=== PATIENT | female | born 1975 | race African-American/Black ===

== ENCOUNTER 2020-10-24 12:05 | Inpatient (IN) | payer MEDICAID, SELFPAY ==
[~2020-10-24] VITALS: Ht 147.3 cm; Wt 147.0 kg
[2020-10-24] MEDS ORDERED: PROAAER10 INH (12:15)
[2020-10-24] MEDS ORDERED: LORazepam 2 MG/ML VIAL IV STA ×2 (12:56→14:12)
[2020-10-24] MEDS ORDERED: LORazepam 2 MG/ML VIAL As Ordered ONE (12:58)
[2020-10-24 13:01] LABS: VENOUS BASE EXCESS -3.9 (-2.0-2.0); VENOUS HCO3 22.3 MEQ/L (23.0-27.0); VENOUS O2 SATURATION 97.8 % (60.0-80.0); VENOUS PARTIAL PRESSURE CO2 44.6 mmHg (38.0-50.0); VENOUS PARTIAL PRESSURE O2 104.3 mmHg (30.0-50.0); VENOUS PH 7.316 UNITS (7.330-7.430); VENOUS STANDARD HCO3 21.3 MEQ/L; VENOUS TOTAL CO2 23.6 MEQ/L (24.0-28.0)
[2020-10-24 13:05] LABS: BASO % 0.2 % (0.0-1.0); EOS % 0.2 % (0.0-3.0); HEMATOCRIT 37.9 % (36.0-47.0); HEMOGLOBIN 11.8 g/dl (12.0-15.5); LYMPH # 1.4 10^3/uL (1.5-5.0); LYMPH % 11.4 % (24.0-44.0); MEAN CORPUSCULAR HEMOGLOBIN 27.5 pg (27.0-33.0); MEAN CORPUSCULAR HGB CONC 31.1 g/dl (32.0-36.5); MEAN CORPUSCULAR VOLUME 88.3 fl (80.0-96.0); MONO # 1.3 10^3/uL (0.0-0.8); MONO % 10.6 % (2.0-8.0); NEUTROPHILS # 9.5 10^3/uL (1.5-8.5); NEUTROPHILS % 77.2 % (36.0-66.0); PLATELET COUNT, AUTOMATED 303 10^3/uL (150-450); RED BLOOD COUNT 4.29 10^6/uL (4.00-5.40); WHITE BLOOD COUNT 12.3 10^3/uL (4.0-10.0)
--- NOTE | 2020-10-24 13:36 | REP ---
INDICATION: Drug Overdose. COMPARISON: None. TECHNIQUE: Portable FINDINGS: The technique utilized in obtaining the radiograph has magnified the cardiac silhouette and accentuated the interstitial markings. The superior mediastinal structures are midline. The cardiac silhouette is unremarkable in size, shape, and position. The diaphragmatic surfaces of the lungs are regular, and the costophrenic angles are clear. The pulmonary plasencia are clear. The imaged osseous structures are intact. IMPRESSION: There is no acute cardiopulmonary disease. <Electronically signed by Nathanael Tay > 10/24/20 [id number]
[2020-10-24 13:49] LABS: OSMOLALITY SERUM 292 MOSM/KG (275-295)
[2020-10-24 14:19] LABS: BLOOD UREA NITROGEN 12 MG/DL (7-18); CALCIUM LEVEL 9.8 MG/DL (8.5-10.1); CARBON DIOXIDE LEVEL 23 MEQ/L (21-32); CHLORIDE LEVEL 105 MEQ/L (98-107); CREATININE FOR GFR 1.03 MG/DL (0.55-1.30); GLOMERULAR FILTRATION RATE > 60.0 (>58); GLUCOSE, FASTING 105 MG/DL (70-100); POTASSIUM SERUM 3.8 MEQ/L (3.5-5.1); SODIUM LEVEL 140 MEQ/L (136-145)
[2020-10-24 14:20] LABS: ACETAMINOPHEN LEVEL < 2.0 UG/ML (10.0-30.0); ALT/SGPT 49 U/L (12-78); BILIRUBIN,DIRECT 0.4 MG/DL (0.0-0.2); BILIRUBIN,TOTAL 1.4 MG/DL (0.2-1.0); CPK CREATINE PHOSPHOKINASE 1612 U/L (26-192); ETHYL ALCOHOL (ETHANOL) < 0.003 % (0.000-0.010); SALICYLATE LEVEL < 1.7 MG/DL (5.0-30.0); THYROID STIMULATING HORMONE 0.958 uIU/ML (0.358-3.740); TOTAL PROTEIN 7.7 GM/DL (6.4-8.2)
[2020-10-24] MEDS ORDERED: NS 500 ML IV STA (15:45)
[2020-10-24 17:09] LABS: AMPHETAMINES LEVEL URINE NEGATIVE (NEGATIVE); BARBITURATES URINE NEGATIVE (NEGATIVE); BENZODIAZEPINES URINE NEGATIVE (NEGATIVE); CANNABINOIDS URINE NEGATIVE (NEGATIVE); COCAINE METABOLITE URINE POSITIVE (NEGATIVE); METHADONE URINE NEGATIVE (NEGATIVE); OPIATES URINE NEGATIVE (NEGATIVE); PHENCYCLIDINE URINE NEGATIVE (NEGATIVE)
[2020-10-24] MEDS ORDERED: MOM 30ML SUSPENSION UDC PO PRN (17:25)
[2020-10-24] MEDS ORDERED: MAALOX 30 ML SUSP *UDC PO PRN (17:25)
--- NOTE | 2020-10-24 17:25 | HPEPDOC ---
[facility] Medical History & Physical Date of Admission Oct 24, 2020 Date of Service: Oct 24, 2020 History and Physical CHIEF COMPLAINT: Altered mental status, shortness of breath HISTORY OF PRESENT ILLNESS: Patient is a 45-year-old female with reported history of untreated obstructive sleep apnea as well as cocaine abuse. Majority of history is obtained from collateral sources including ER and patient's son, as the patient only responds to sternal rub and is unable to answer many for questions. Patient was brought to ER by EMS after she had developed rising and twitching movements altered mental status and shortness of breath. She reported to be a provider that she had drunk approximately 1 L of alcohol yesterday and is smoking since her brown substance brought by her friends. On arrival to the ER patient was saturating 89% on room air, was tachycardic to 132, temperature 99.9 and blood pressure 191/99 which later improved to 139/71. VBG showing a true acidosis with a CO2 of 62.1 and a pH of 7.2-7. Patient needed to placed on BiPAP is saturating at 99%. Labs reviewed. WBC 12.3, hemoglobin 11.8, platelets 303. Sodium 140, K3.8. CR 1.03. Total bili 1.4. D bili 0.4. CK 1600. Urine toxicology screen is positive for cocaine. PAST MEDICAL HISTORY: Astma Active untreated AUDREY Cocaine abuse PAST SURGICAL HISTORY: Unable to obtain as patient is currently unable to answer questions. SOCIAL HISTORY: History is positive for cocaine abuse ALLERGIES: Please see below. REVIEW OF SYSTEMS: Patient is unable to participate in review of systems at this time. HOME MEDICATIONS: Please see below. PHYSICAL EXAMINATION: VITAL SIGNS: please see below General: NAD, comfortable HEENT: 3 mm pupils, symmetrical. Neck: supple, normal ROM, no JVD Respiratory: lungs CTAB, no wheeze, no rales, no crackles CVS: RRR, normal S1, S2, no murmurs Abdo: soft, no masses, no hepatosplenomegaly, BS+, no rebound tenderness Extremities: no edema, pulses 2+ MSK: no joint deformities, normal ROM Neuro: patient reponds only to painful stimuli, moves all 4 extremities. LABORATORY DATA: See below. IMAGING: CXR (10/24/20): There is no acute cardiopulmonary disease. MICROBIOLOGY: Please see below. ASSESSMENT: 45-year-old female with asthma, untreated obstructive sleep apnea and cocaine abuse admitted for altered mental status secondary to alcohol and unknown substance abuse presented with acute respiratory failure requiring BiPAP. Patient be admitted to ICU for BiPAP therapy with disintegrator operator on consult for BiPAP management. PLAN: Acute respiratory failure/respiratory acidosis - in setting of drug and alcohol use - patient responds only to painful stimuli, unable to answer questions - presently on bipap, tolerating well, saturating 98% - repeat ABG in 1 hour - powerhouse operator consult for assistance with bipap management - combivent prn - obtain CT head wo contrast Suspected obstructive sleep apnea - c/w bipap for now - outpatient sleep study Polysustance use/etoh use disorder - CIWA protocol - ativan prn GI ppx: IV PPI DVT ppx: heparin 5000 mg q8h SC Dispo: admission expect to last > 2 midnights Vital Signs Vital Signs Date Time Temp Pulse Resp B/P (MAP) Pulse Ox O2 Delivery O2 Flow Rate FiO2 10/24/20 16:45 105 143/67 (92) 98 NIPPV (BIPAP/CPAP) 10/24/20 15:48 30 10/24/20 14:38 4.0 10/24/20 12:07 99.9 24 Laboratory Data Labs 24H Laboratory Tests 2 10/24/20 12:24: Immature Granulocyte % (Auto) 0.4, Neutrophils (%) (Auto) 77.2H, Lymphocytes (%) (Auto) 11.4L, Monocytes (%) (Auto) 10.6H, Eosinophils (%) (Auto) 0.2, Basophils (%) (Auto) 0.2, Neutrophils # (Auto) 9.5H, Lymphocytes # (Auto) 1.4L, Monocytes # (Auto) 1.3H, Eosinophils # (Auto) 0.0, Basophils # (Auto) 0.0, Nucleated Red Blood Cells % (auto) 0.0, Anion Gap 12, Glomerular Filtration Rate > 60.0, Osmolality 292, Calcium Level 9.8, Total Bilirubin 1.4H, Direct Bilirubin 0.4H, Aspartate Amino Transf (AST/SGOT) 63H, Alanine Aminotransferase (ALT/SGPT) 49, Alkaline Phosphatase 81, Total Creatine Kinase 1612H, Total Protein 7.7, Albumin 4.0, Albumin/Globulin Ratio 1.1L, Thyroid Stimulating Hormone (TSH) 0.958, Salicylates Level < 1.7L, Acetaminophen Level < 2.0L, Ethyl Alcohol Level < 0.003 10/24/20 12:30: Blood Gas Bicarbonate Standard 21.3, Venous Blood pH 7.316L, Venous Blood Partial Pressure CO2 44.6, Venous Blood Partial Pressure O2 104.3H, Venous Blood Total Carbon Dioxide 23.6L, Venous Blood HCO3 22.3L, Venous Blood Oxygen Saturation 97.8H, Venous Blood Base Excess -3.9L, Urine Opiates Screen NEGATIVE, Urine Methadone Screen NEGATIVE, Urine Barbiturates Screen NEGATIVE, Urine Phencyclidine Screen NEGATIVE, Urine Amphetamines Screen NEGATIVE, Urine Benzodiazepines Screen NEGATIVE, Urine Cocaine Metabolite Screen POSITIVEH, Urine Cannabinoids Screen NEGATIVE 10/24/20 14:40: POC pH (Misc Panel) 7.227*L, POC Base Excess (Misc Panel) -2.0, POC Saturated Percent O2 (Misc) 94L, POC pO2 (Misc Panel) 87.0, POC pCO2 (Misc Panel) 62.1*H, POC HCO3 (Misc Panel) 25.8, POC Total CO2 (Misc Panel) 28.0H 10/24/20 15:35: POC pH (Misc Panel) 7.228*L, POC Base Excess (Misc Panel) 0.0, POC Saturated Percent O2 (Misc) 100H, POC pO2 (Misc Panel) 323.0H, POC pCO2 (Misc Panel) 66.0*H, POC HCO3 (Misc Panel) 27.5H, POC Total CO2 (Misc Panel) 29.0H CBC/BMP Laboratory Tests 10/24/20 12:24 Microbiology Microbiology 10/24/20 Respiratory Virus Panel (PCR) ([facility]) - Final, Complete Home Medications Scheduled PRN Albuterol Sulfate (Proair Hfa) 8.5 Gm Hfa.aer.ad, 2 PUFF INH Q4H PRN for SHORTNESS OF BREATH Allergies Coded Allergies: No Known Allergies (Unverified , 10/24/20) RACHAEL FOSTER MD Oct 24, 2020 17:25
[2020-10-24 18:26] LABS: ABG BASE EXCESS -3.1 (-2.0-2.0); ABG HCO3 24.6 MEQ/L (22.0-26.0); ABG O2 SATURATION 96.1 % (95.0-99.0); ABG PARTIAL PRESSURE CO2 56.7 mmHg (35.0-45.0); ABG PARTIAL PRESSURE O2 92.1 mmHg (75.0-100.0); ABG STANDARD HCO3 21.9 MEQ/L (22.0-26.0); ABG TOTAL CO2 26.4 MEQ/L (22.0-29.0); ABG pH (ARTERIAL) 7.256 UNITS (7.350-7.450)
[2020-10-24 19:05] VITALS: BP 136/65
--- NOTE | 2020-10-24 19:12 | REPVR ---
PROCEDURE INFORMATION: Exam: CT Head Without Contrast Exam date and time: 10/24/2020 6:52 PM Age: 45 years old Clinical indication: Altered mental status/memory loss; Additional info: AMS TECHNIQUE: Imaging protocol: Computed tomography of the head without contrast. Radiation optimization: All CT scans at this facility use at least one of these dose optimization techniques: automated exposure control; mA and/or kV adjustment per patient size (includes targeted exams where dose is matched to clinical indication); or iterative reconstruction. COMPARISON: No relevant prior studies available. FINDINGS: Brain: Normal. No hemorrhage. Unremarkable white matter. No mass effect. Cerebral ventricles: No ventriculomegaly. Bones/joints: Unremarkable. No acute fracture. Paranasal sinuses: Visualized sinuses are unremarkable. No fluid levels. Mastoid air cells: Visualized mastoid air cells are well aerated. Soft tissues: Unremarkable. IMPRESSION: No acute intracranial abnormality. Electronically signed by: Karri Rea On 10/24/2020 19:12:57 PM
--- NOTE | 2020-10-24 19:39 | CCN ---
CRITICAL CARE NOTE DATE: 10/24/2020 CRITICAL CARE TIME: 51 minutes. This excludes all procedures. SUBJECTIVE: I was consulted for BiPAP and hypercarbic respiratory failure. Priya is a 45-year-old female who presented to the Emergency Room intoxicated, positive tox screen for cocaine, possible synthetic drug use. Upon my arrival to the Emergency Room, the patient had already been on bilevel noninvasive therapy, pulling tidal volumes around 430. She aroused with stimulation to the point where she took her mask off. She was able to say where she was, what day it was, what month it was. She did have some significant agitation. However, was able to respond to commands and follow commands. At this point in time, she is unable to provide a significant amount of history. She does admit to illicit drug use with a friend and not only cocaine but then smoking a brown substance that she was unsure of the exact drug which she was doing. The patient has morbid obesity. Reported history of obstructive sleep apnea. Social history, review of systems, and medications are unobtainable from the patient currently. OBJECTIVE: Vital signs: Temperature is 99.9, heart rate 124 in sinus rhythm, respiratory rate 18 to 24, blood pressure is 154/67 with a MAP of 96, oxygen saturation 94% on 2 liters currently. She was taken off bilevel now that she is more awake. HEENT: Sclerae are clear, nonicteric. Pupils are equal and reactive to light. Mucous membranes are moist without lesions. Oropharynx without erythema or exudate. Mallampati IV airway. Tongue is large. Neck is large in circumference. Unable to assess jugular venous pressure, no thyromegaly. Lymph: No cervical, supraclavicular, or axillary adenopathy. Cardiac: Tachycardic S1, S2 without audible murmur, rub, or gallop. PMI is difficult to palpate due to body habitus. Pulmonary: Clear to auscultation without rales, rhonchi, or wheezes. No dullness to percussion. No accessory muscle use. Abdomen: Obese, soft, nontender, nondistended. No hepatosplenomegaly. No masses or hernia. Extremities: No cyanosis, clubbing, or edema. Skin: No rash, jaundice, or bruising. Musculoskeletal: Normal muscle tone. No evidence of trauma or fracture. Neurologic: No unilateral weakness. No myoclonus. With dorsiflexion of the foot there is no evidence of myoclonus. The patient is able to have 5/5 muscle strength bilaterally. She is able to cough, clear her own secretions. Pupils are equal and reactive to light. She does have some frequent limb movements that appear more out of agitation than true myoclonic jerking. Laboratory evaluation shows a white blood cell count of 12.3, hemoglobin 11.8, platelet count of 303 with neutrophilia of 77. Arterial blood gas shows now a pH of 7.26, pCO2 of 58, and a PaO2 of 92. This is improved from VBG of 7.23, pCO2 of 66, PaO2 of 323. Toxicology screen is positive for cocaine, negative for all other things including alcohol despite the patient reporting alcohol intoxication. Chest x-ray shows limited inspiratory effort likely from body habitus without evidence of infiltrate. However, it is a fairly poor quality film. There is some haziness in the right hilum but this is difficult to tell whether this is from decreased penetration or true abnormality. The official radiology report is that there is no acute pulmonary disease. ASSESSMENT AND PLAN: Hypercarbic respiratory failure from drug intoxication. The patient did receive some benzodiazepine therapy due to agitation in the Emergency Room. Initially had fairly decent ABG. However, to control her agitation was given Ativan. This likely caused some of her hypercarbic respiratory failure along with her obesity. Therefore for all forms of sleep and sedation she should be on bilevel noninvasive therapy. I have written for this. She should be monitored in the Intensive Care Unit at least in the first 24 hours to ensure that there is no need for intubation or invasive mechanical ventilation. Recommend monitoring for other signs of drug intoxication. Critical care required for management of noninvasive ventilation and respiratory failure. MTDD
[2020-10-24] MEDS: PANTOPRAZOLE 40MG VIAL (C9113 PER 1) IV SCH (19:41)
[2020-10-24 20:00] VITALS: BP 118/64
[2020-10-24 21:00] VITALS: BP 104/55
[2020-10-24] MEDS: DOCUSATE SODIUM 100MG CAPSULE PO SCH (21:30)
[2020-10-24] MEDS: HEPARIN SOD (PORCINE) 5000UNITS/ML 1ML VIAL/SYRINGE SC SCH (21:30)
[2020-10-24] MEDS: ACETAMINOPHEN TAB 650MG DOSE (2X325MG) PO PRN (21:31)
[2020-10-25] VITALS (8 sets, daily range): BP systolic 99–147; BP diastolic 64–85; O2SAT 98
[2020-10-25] MEDS: NS 0.45% 1,000 ML IV SCH ×3 (00:19→23:30)
[2020-10-25 05:11] LABS: BASO % 0.2 % (0.0-1.0); EOS # 0.1 10^3/uL (0.0-0.5); EOS % 1.3 % (0.0-3.0); HEMOGLOBIN 10.8 g/dl (12.0-15.5); LYMPH # 1.8 10^3/uL (1.5-5.0); MEAN CORPUSCULAR HEMOGLOBIN 27.3 pg (27.0-33.0); MEAN CORPUSCULAR VOLUME 91.1 fl (80.0-96.0); MONO % 11.4 % (2.0-8.0); NEUTROPHILS # 5.6 10^3/uL (1.5-8.5); PLATELET COUNT, AUTOMATED 261 10^3/uL (150-450); RED BLOOD COUNT 3.95 10^6/uL (4.00-5.40); WHITE BLOOD COUNT 8.6 10^3/uL (4.0-10.0)
[2020-10-25 05:46] LABS: ALBUMIN 3.5 GM/DL (3.2-5.2); ALT/SGPT 48 U/L (12-78); BILIRUBIN,TOTAL 1.2 MG/DL (0.2-1.0); BLOOD UREA NITROGEN 9 MG/DL (7-18); CALCIUM LEVEL 9.4 MG/DL (8.5-10.1); CARBON DIOXIDE LEVEL 31 MEQ/L (21-32); CHLORIDE LEVEL 106 MEQ/L (98-107); CREATININE FOR GFR 0.85 MG/DL (0.55-1.30); GLOMERULAR FILTRATION RATE > 60.0 (>58); GLUCOSE, FASTING 101 MG/DL (70-100); MAGNESIUM LEVEL 2.4 MG/DL (1.8-2.4); POTASSIUM SERUM 4.4 MEQ/L (3.5-5.1); SODIUM LEVEL 140 MEQ/L (136-145); TOTAL PROTEIN 6.7 GM/DL (6.4-8.2)
[2020-10-25 06:19] LABS: ABG HCO3 25.9 MEQ/L (22.0-26.0); ABG O2 SATURATION 98.7 % (95.0-99.0); ABG PARTIAL PRESSURE CO2 53.1 mmHg (35.0-45.0); ABG PARTIAL PRESSURE O2 129.5 mmHg (75.0-100.0); ABG STANDARD HCO3 23.7 MEQ/L (22.0-26.0); ABG TOTAL CO2 27.5 MEQ/L (22.0-29.0); ABG pH (ARTERIAL) 7.306 UNITS (7.350-7.450)
[2020-10-25] MEDS ORDERED: BENZOCAINE 20% HEMORRHOIDAL OINTMENT 28GM TUBE TOP PRN (06:30)
[2020-10-25] MEDS: BENZOCAINE 20% GEL 9GM TUBE (ANBESOL MAX STRENGTH) OR PRN (07:11)
[2020-10-25] MEDS: HEPARIN SOD (PORCINE) 5000UNITS/ML 1ML VIAL/SYRINGE SC SCH ×3 (07:11→21:00)
[2020-10-25] MEDS: DOCUSATE SODIUM 100MG CAPSULE PO SCH ×2 (08:43→20:59)
--- NOTE | 2020-10-25 10:10 | ECGEPIP ---
[facility] - ED Test Date: 2020-10-24 Pat Name: JOAN NERI Department: Room: - Gender: Female Technology Services Manager: PAT : 1975 Requested By: iMmi De Jesus Order Number: [id number] Reading MD: Mimi De Jesus Measurements Intervals [place] Rate: 121 P: 55 ME: 154 QRS: 75 QRSD: 72 T: 40 QT: 312 QTc: 443 Interpretive Statements Sinus tachycardia no prior Electronically Signed on 10-25-2020 10:09:36 EDT by Mimi De Jesus
[2020-10-25 13:51] LABS: HEPATITIS B SURFACE ANTIGEN NEGATIVE (NEGATIVE)
[2020-10-25 14:18] LABS: HEPATITIS B CORE ANTIBODY IGM NEGATIVE (NEGATIVE); HEPATITIS C VIRUS ABY INDEX < 0.0 INDEX (<0.8)
[2020-10-25 14:21] LABS: HEPATITIS A ANTIBODY IGM NEGATIVE (NEGATIVE)
[2020-10-25] MEDS: ACETAMINOPHEN TAB 650MG DOSE (2X325MG) PO PRN ×2 (14:42→20:59)
--- NOTE | 2020-10-25 14:42 | REP ---
INDICATION: elevated bilirubin. COMPARISON: None. TECHNIQUE: Right upper quadrant sonography is performed. Exam quality was inhibited due to patient body habitus and limited ability to breath hold and position. FINDINGS: Scanning through the right upper quadrant of the abdomen demonstrates a normal sized, thin-walled gallbladder without evidence of stone or polyp. Common bile duct is normal measuring 0.4 cm in greatest diameter. No focal liver lesion is seen. Liver size is near the upper range of normal.. Pancreas is partially obscured by gas. No pancreatic abnormality is observed. No right renal abnormality is seen. There is no evidence of ascites. The right kidney measures 11.5 x 5.9 x 4.6 cm. IMPRESSION: Borderline liver size. Somewhat limited visualization of the pancreas. Otherwise negative right upper quadrant sonography. <Electronically signed by Jatinder Santana > 10/25/20 [id number]
--- NOTE | 2020-10-25 15:12 | IPNPDOC ---
Date Seen The patient was seen on 10/25/20. Progress Note SUBJECTIVE: Patient was seen and examined at bedside. Doing well. BiPAP has been off for about 4 hours. Presently on 2 L nasal cannula. States that shortness of breath has improved. Denies any chest pain, palpitations, nausea, vomiting, diarrhea. She is alert and oriented 3. States that she into the hospital after smoking a brown substance of unknown origin that was given to her by a friend. OBJECTIVE PHYSICAL EXAMINATION: VITAL SIGNS: please see below General: Obese female HEENT: PERRLA, EOMI, sclerae clear Neck: supple, normal ROM, no JVD Respiratory: lungs CTAB, no wheeze, no rales, no crackles CVS: RRR, normal S1, S2, no murmurs Abdo: soft, no masses, no hepatosplenomegaly, BS+, no rebound tenderness Extremities: no edema, pulses 2+ MSK: no joint deformities, normal ROM Neuro: no focal neuro deficits, moving all 4 extremities, CN2-12 intact. Strength 5/5 in all 4 extremities. No nystagmus. Psych: calm, cooperative, AAO x 3 LABORATORY DATA, IMAGING STUDIES, MICROBIOLOGY: Please see below. DVT prophylaxis ordered?: Heparin 5000 units every 8 hours subcutaneous ASSESSMENT AND PLAN: 45-year-old female with asthma, untreated obstructive sleep apnea and cocaine abuse admitted for altered mental status secondary to alcohol and unknown substance abuse presented with acute respiratory failure requiring BiPAP. Patient be admitted to ICU for BiPAP therapy with fence gate assembler on consult for BiPAP management. PROBLEMS: Acute respiratory failure/respiratory acidosis - ABG improved after bipap, now AAO x 3 - downgrade to med surg - combivent prn - CT head wo acute changes Suspected obstructive sleep apnea - 2L O2. check nocturnal O2 - outpatient sleep study Polysubstance use/etoh use disorder - CIWA protocol - ativan prn GI ppx: IV PPI DVT ppx: heparin 5000 mg q8h SC Dispo: admission expect to last > 2 midnights VS, I&O, 24H, Fishbone Vital Signs/I&O Vital Signs Date Time Temp Pulse Resp B/P (MAP) Pulse Ox O2 Delivery O2 Flow Rate FiO2 10/25/20 12:00 98.9 113 22 135/70 (91) 95 NIPPV (BIPAP/CPAP) 30 10/25/20 12:00 2.0 I&O- Last 24 Hours up to 6 AM 10/25/20 06:00 Intake Total 860 ml Output Total 600 ml Balance 260 ml Laboratory Data 24H LABS Laboratory Tests 2 10/24/20 15:35: POC pH (Misc Panel) 7.228*L, POC Base Excess (Misc Panel) 0.0, POC Saturated Percent O2 (Misc) 100H, POC pO2 (Misc Panel) 323.0H, POC pCO2 (Misc Panel) 66.0*H, POC HCO3 (Misc Panel) 27.5H, POC Total CO2 (Misc Panel) 29.0H 10/24/20 18:19: Blood Gas Bicarbonate Standard 21.9L, Arterial Blood pH 7.256L, Arterial Blood Partial Pressure CO2 56.7H, Arterial Blood Partial Pressure O2 92.1, Arterial Blood Total CO2 26.4, Arterial Blood HCO3 24.6, Arterial Blood Base Excess - 3.1L, Arterial Blood Oxygen Saturation 96.1 10/25/20 05:02: Immature Granulocyte % (Auto) 0.1, Neutrophils (%) (Auto) 66.0, Lymphocytes (%) (Auto) 21.0L, Monocytes (%) (Auto) 11.4H, Eosinophils (%) (Auto) 1.3, Basophils (%) (Auto) 0.2, Neutrophils # (Auto) 5.6, Lymphocytes # (Auto) 1.8, Monocytes # (Auto) 1.0H, Eosinophils # (Auto) 0.1, Basophils # (Auto) 0.0, Nucleated Red Blood Cells % (auto) 0.0, Anion Gap 3L, Glomerular Filtration Rate > 60.0, Calcium Level 9.4, Magnesium Level 2.4, Total Bilirubin 1.2H, Aspartate Amino Transf (AST/SGOT) 53H, Alanine Aminotransferase (ALT/SGPT) 48, Alkaline P hosphatase 72, Total Protein 6.7, Albumin 3.5, Albumin/Globulin Ratio 1.1L, Hepatitis A IgM Antibody NEGATIVE, Hepatitis B Surface Antigen NEGATIVE, Hepatitis B Core IgM Antibody NEGATIVE, Hepatitis C Antibody Index < 0.0 10/25/20 05:52: Blood Gas Bicarbonate Standard 23.7, Arterial Blood pH 7.306L, Arterial Blood Partial Pressure CO2 53.1H, Arterial Blood Partial Pressure O2 129.5H, Arterial Blood Total CO2 27.5, Arterial Blood HCO3 25.9, Arterial Blood Base Excess -1.0, Arterial Blood Oxygen Saturation 98.7 CBC/BMP Laboratory Tests 10/25/20 05:02 Microbiology Microbiology 10/24/20 Respiratory Virus Panel (PCR) ([facility]) - Final, Complete RACHAEL FOSTER MD Oct 25, 2020 15:12
[2020-10-25] MEDS: PANTOPRAZOLE 40MG VIAL (C9113 PER 1) IV SCH (17:18)
[2020-10-25] MEDS: COMBIVENT RESPIMAT 100-20MCG INHALER 4GM INH SCH ×3 (19:21→23:26)
--- NOTE | 2020-10-25 19:35 | REP ---
INDICATION: r/o DVT, has pain. COMPARISON: None. TECHNIQUE: Multiple ultrasonographic images of the deep venous structures of the bilateral thigh were obtained from the common femoral vein to the popliteal vein along with Doppler interrogation and color flow Doppler images. FINDINGS: There is no abnormal echogenic material seen within any of the visualized deep venous structures that would suggest acute thrombosis. Coaptation is unremarkable throughout. Doppler interrogation shows an expected response to respiratory variability and augmentation. The color flow images show what appears to be a normal vascular pattern throughout. IMPRESSION: There is no ultrasonographic evidence of deep venous thrombosis involving any of the visualized deep venous structures of the bilateral thigh, as described above. <Electronically signed by Nathanael Tay > 10/25/201930
[2020-10-25] MEDS ORDERED: LORazepam 2 MG TAB PO PRN (23:00)
[2020-10-26 05:15] VITALS: BP 136/68
[2020-10-26] MEDS: ACETAMINOPHEN TAB 650MG DOSE (2X325MG) PO PRN ×3 (05:25→21:20)
[2020-10-26] MEDS: HEPARIN SOD (PORCINE) 5000UNITS/ML 1ML VIAL/SYRINGE SC SCH ×3 (05:26→21:20)
[2020-10-26] MEDS: BENZOCAINE 20% GEL 9GM TUBE (ANBESOL MAX STRENGTH) OR PRN (05:27)
[2020-10-26] MEDS: COMBIVENT RESPIMAT 100-20MCG INHALER 4GM INH SCH ×6 (05:31→23:15)
[2020-10-26 05:32] VITALS: O2SAT 97
[2020-10-26 07:22] LABS: BASO % 0.3 % (0.0-1.0); EOS # 0.1 10^3/uL (0.0-0.5); EOS % 0.9 % (0.0-3.0); HEMATOCRIT 36.5 % (36.0-47.0); HEMOGLOBIN 10.6 g/dl (12.0-15.5); LYMPH # 1.1 10^3/uL (1.5-5.0); MEAN CORPUSCULAR HEMOGLOBIN 27.2 pg (27.0-33.0); MEAN CORPUSCULAR VOLUME 93.8 fl (80.0-96.0); MONO # 0.5 10^3/uL (0.0-0.8); MONO % 8.2 % (2.0-8.0); NEUTROPHILS # 4.7 10^3/uL (1.5-8.5); NEUTROPHILS % 73.4 % (36.0-66.0); PLATELET COUNT, AUTOMATED 280 10^3/uL (150-450); RED BLOOD COUNT 3.89 10^6/uL (4.00-5.40); WHITE BLOOD COUNT 6.4 10^3/uL (4.0-10.0)
[2020-10-26 07:29] LABS: HEMOGLOBIN A1c 6.5 %
[2020-10-26 07:30] VITALS: BP 135/78
[2020-10-26 07:33] LABS: ALBUMIN 3.3 GM/DL (3.2-5.2); ALT/SGPT 59 U/L (12-78); BILIRUBIN,TOTAL 0.7 MG/DL (0.2-1.0); BLOOD UREA NITROGEN 6 MG/DL (7-18); CALCIUM LEVEL 8.8 MG/DL (8.5-10.1); CARBON DIOXIDE LEVEL 32 MEQ/L (21-32); CHLORIDE LEVEL 103 MEQ/L (98-107); CREATININE FOR GFR 0.88 MG/DL (0.55-1.30); GLOMERULAR FILTRATION RATE > 60.0 (>58); GLUCOSE, FASTING 147 MG/DL (70-100); MAGNESIUM LEVEL 2.1 MG/DL (1.8-2.4); POTASSIUM SERUM 4.4 MEQ/L (3.5-5.1); SODIUM LEVEL 138 MEQ/L (136-145); TOTAL PROTEIN 6.7 GM/DL (6.4-8.2)
[2020-10-26] MEDS: DOCUSATE SODIUM 100MG CAPSULE PO SCH ×2 (09:00→21:00)
[2020-10-26] MEDS: NS 0.45% 1,000 ML IV SCH (09:47)
--- NOTE | 2020-10-26 12:29 | IPNPDOC ---
Date Seen The patient was seen on 10/26/20. Progress Note SUBJECTIVE: Patient was seen and examined at bedside. . She tolerated CPAP well overnight stated that her shortness of breath, much improved. Despite this she continues to require 3 L of oxygen via nasal cannula to maintain saturation above 92%. At this time, she does deny chest pain, seizures of breath, palpitations. No cough, no hemoptysis. OBJECTIVE PHYSICAL EXAMINATION: VITAL SIGNS: please see below General: Obese female HEENT: PERRLA, EOMI, sclerae clear Neck: supple, normal ROM, no JVD Respiratory: lungs CTAB, no wheeze, no rales, no crackles CVS: RRR, normal S1, S2, no murmurs Abdo: soft, no masses, no hepatosplenomegaly, BS+, no rebound tenderness Extremities: no edema, pulses 2+ MSK: no joint deformities, normal ROM Neuro: no focal neuro deficits, moving all 4 extremities, CN2-12 intact. Strength 5/5 in all 4 extremities. No nystagmus. Psych: calm, cooperative, AAO x 3 LABORATORY DATA, IMAGING STUDIES, MICROBIOLOGY: Please see below. DVT prophylaxis ordered?: Heparin 5000 units every 8 hours subcutaneous ASSESSMENT AND PLAN: 45-year-old female with asthma, untreated obstructive sleep apnea and cocaine abuse admitted for altered mental status secondary to alcohol and unknown substance abuse presented with acute respiratory failure requiring BiPAP. Patient be admitted to ICU for BiPAP therapy with crm dynamics developer on consult for BiPAP management. PROBLEMS: Acute respiratory failure/respiratory acidosis - ABG improved after bipap, now AAO x 3 - hypoxia persists, requires 3L O2 - combivent prn - tolerated CPAP overnight - CT head wo acute changes - I discussed with Dr. Ward. She is recommended to proceed with CT angiogram of the chest. - Will order a home safety eval from physical therapy. Encourage patient to ambulate and to use incentive spirometer. - will order CT angio chest. - incentive spirometry Suspected obstructive sleep apnea -now on 3L O2. check nocturnal O2 - outpatient sleep study Polysubstance use/etoh use disorder - [facility] protocol - ativan prn GI ppx: IV PPI DVT ppx: heparin 5000 mg q8h SC Dispo: admission expect to last > 2 midnights VS, I&O, 24H, Fishbone Vital Signs/I&O Vital Signs Date Time Temp Pulse Resp B/P (MAP) Pulse Ox O2 Delivery O2 Flow Rate FiO2 10/26/20 11:15 106 10/26/20 06:40 99.7 10/26/20 05:32 18 10/26/20 05:32 3 10/26/20 05:32 97 Nasal Cannula 32 10/26/20 05:15 136/68 (90) I&O- Last 24 Hours up to 6 AM 10/26/20 06:00 Intake Total 2900 ml Output Total 175 ml Balance 2725 ml Laboratory Data 24H LABS Laboratory Tests 2 10/25/20 17:01: Bedside Glucose (Misc Panel) 114H 10/26/20 06:43: Immature Granulocyte % (Auto) 0.2, Neutrophils (%) (Auto) 73.4H, Lymphocytes (%) (Auto) 17.0L, Monocytes (%) (Auto) 8.2H, Eosinophils (%) (Auto) 0.9, Basophils (%) (Auto) 0.3, Neutrophils # (Auto) 4.7, Lymphocytes # (Auto) 1.1L, Monocytes # (Auto) 0.5, Eosinophils # (Auto) 0.1, Basophils # (Auto) 0.0, Nucleated Red Blood Cells % (auto) 0.0, Anion Gap 3L, Glomerular Filtration Rate > 60.0, Estimated Mean Plasma Glucose 140H, Hemoglobin A1c 6.5, Calcium Level 8.8, Magnesium Level 2.1, Total Bilirubin 0.7, Aspartate Amino Transf (AST/SGOT) 60H, Alanine Aminotransferase (ALT/SGPT) 59, Alkaline Phosphatase 71, Total Protein 6.7, Albumin 3.3, Albumin/Globulin Ratio 1.0L CBC/BMP Laboratory Tests 10/26/20 06:43 Microbiology Microbiology 10/24/20 Respiratory Virus Panel (PCR) ([facility]) - Final, Complete RACHAEL FOSTER MD Oct 26, 2020 12:29
[2020-10-26] MEDS ORDERED: ISOVUE-370 76% 100ML VIAL As Ordered ONE (13:01)
--- NOTE | 2020-10-26 13:32 | REP ---
INDICATION: r/o PE. COMPARISON: None. TECHNIQUE: CT angiogram chest performed following the intravenous administration of 100 cc of Isovue 370. Sagittal and coronal reconstruction images are performed. Study is limited due to patient motion. FINDINGS: Lungs: There is mild fibro atelectatic change in the left lower lobe. There is mild patchy atelectasis or infiltrate in the right lower lobe. Mediastinum: No adenopathy. Pulmonary arteries: No evidence of central pulmonary embolism. Belkis: No adenopathy. Axilla: No adenopathy. Pleura: No effusion. Heart: Mildly enlarged. Thoracic aorta: No aneurysm or dissection. Upper abdominal structures: Unremarkable. Visualized osseous structures: Unremarkable. IMPRESSION: Limited exam due to patient motion. No CT evidence of central pulmonary embolism. Mild patchy atelectasis or infiltrate right lower lobe.. Mild cardiomegaly. <Electronically signed by Jonathan Talavera > 10/26/20 [id number]
[2020-10-26 14:00] VITALS: BP 140/83
[2020-10-26] MEDS ORDERED: FIORICET TAB PO ONE (16:15)
[2020-10-26] MEDS: PANTOPRAZOLE 40MG VIAL (C9113 PER 1) IV SCH (17:45)
[2020-10-26 22:00] VITALS: BP 99/67
[2020-10-26 22:30] VITALS: BP 136/80
[2020-10-27] MEDS: COMBIVENT RESPIMAT 100-20MCG INHALER 4GM INH SCH ×4 (04:00→14:58)
[2020-10-27] MEDS: ACETAMINOPHEN TAB 650MG DOSE (2X325MG) PO PRN ×2 (04:41→11:02)
[2020-10-27] MEDS: HEPARIN SOD (PORCINE) 5000UNITS/ML 1ML VIAL/SYRINGE SC SCH ×2 (05:28→14:23)
[2020-10-27 06:00] VITALS: BP 125/80
[2020-10-27 06:39] LABS: BASO % 0.2 % (0.0-1.0); EOS # 0.1 10^3/uL (0.0-0.5); EOS % 1.7 % (0.0-3.0); HEMATOCRIT 37.7 % (36.0-47.0); LYMPH # 1.1 10^3/uL (1.5-5.0); LYMPH % 20.7 % (24.0-44.0); MEAN CORPUSCULAR HEMOGLOBIN 27.6 pg (27.0-33.0); MEAN CORPUSCULAR HGB CONC 29.2 g/dl (32.0-36.5); MEAN CORPUSCULAR VOLUME 94.7 fl (80.0-96.0); MONO # 0.5 10^3/uL (0.0-0.8); NEUTROPHILS # 3.7 10^3/uL (1.5-8.5); NEUTROPHILS % 67.2 % (36.0-66.0); PLATELET COUNT, AUTOMATED 277 10^3/uL (150-450); RED BLOOD COUNT 3.98 10^6/uL (4.00-5.40); WHITE BLOOD COUNT 5.4 10^3/uL (4.0-10.0)
[2020-10-27 07:00] LABS: ALBUMIN 3.3 GM/DL (3.2-5.2); ALT/SGPT 60 U/L (12-78); BILIRUBIN,TOTAL 0.4 MG/DL (0.2-1.0); BLOOD UREA NITROGEN 3 MG/DL (7-18); CALCIUM LEVEL 8.9 MG/DL (8.5-10.1); CARBON DIOXIDE LEVEL 35 MEQ/L (21-32); CHLORIDE LEVEL 101 MEQ/L (98-107); CREATININE FOR GFR 0.72 MG/DL (0.55-1.30); GLOMERULAR FILTRATION RATE > 60.0 (>58); GLUCOSE, FASTING 123 MG/DL (70-100); MAGNESIUM LEVEL 2.2 MG/DL (1.8-2.4); POTASSIUM SERUM 4.4 MEQ/L (3.5-5.1); SODIUM LEVEL 140 MEQ/L (136-145); TOTAL PROTEIN 6.7 GM/DL (6.4-8.2)
[2020-10-27] MEDS: DOCUSATE SODIUM 100MG CAPSULE PO SCH (08:36)
[2020-10-27] MEDS ORDERED: PROAAER10 INH (12:32)
[2020-10-27] MEDS ORDERED: ACET-897 PO (12:32)
--- NOTE | 2020-10-27 12:37 | DS.PDOC ---
Discharge Summary General Date of Admission Oct 24, 2020 at 17:21 Date of Discharge 10/27/20 Discharge Summary PROCEDURES PERFORMED DURING STAY: [None]. ADMITTING DIAGNOSES: 1. . DISCHARGE DIAGNOSES: 1. . COMPLICATIONS/CHIEF COMPLAINT: Acute Respiratory Failure. HISTORY OF PRESENT ILLNESS: . HOSPITAL COURSE: . DISCHARGE MEDICATIONS: Please see below. ALLERGIES: Please see below. PHYSICAL EXAMINATION ON DISCHARGE: VITAL SIGNS: Please see below. GENERAL: HEENT: NECK: CARDIOVASCULAR EXAMINATION: RESPIRATORY EXAMINATION: ABDOMINAL EXAMINATION: EXTREMITIES: SKIN: NEUROLOGICAL EXAMINATION: PSYCHIATRIC EXAMINATION: LABORATORY DATA: Please see below. IMAGING: PROGNOSIS: ACTIVITY: [As tolerated]. DIET: DISCHARGE PLAN: DISPOSITION: . DISCHARGE INSTRUCTIONS: 1. . ITEMS TO FOLLOWUP ON ON OUTPATIENT: 1. . DISCHARGE CONDITION: [Stable]. TIME SPENT ON DISCHARGE: Greater than minutes. Vital Signs/I&Os Vital Signs Date Time Temp Pulse Resp B/P (MAP) Pulse Ox O2 Delivery O2 Flow Rate FiO2 10/27/20 12:17 98 22 82 Nasal Cannula 3.0 10/27/20 06:00 98.8 125/80 (95) 10/26/20 05:32 32 I&O- Last 24 Hours up to 6 AM 10/27/20 06:00 Intake Total 2520 ml Output Total 0 ml Balance 2520 ml Laboratory Data Labs 24H Laboratory Tests 2 10/27/20 06:09: Anion Gap 4L, Glomerular Filtration Rate > 60.0, Calcium Level 8.9, Magnesium Level 2.2, Total Bilirubin 0.4, Aspartate Amino Transf (AST/SGOT) 38H, Alanine Aminotransferase (ALT/SGPT) 60, Alkaline Phosphatase 64, Total Protein 6.7, Albumin 3.3, Albumin/Globulin Ratio 1.0L 10/27/20 06:10: Immature Granulocyte % (Auto) 0.2, Neutrophils (%) (Auto) 67.2H, Lymphocytes (%) (Auto) 20.7L, Monocytes (%) (Auto) 10.0H, Eosinophils (%) (Auto) 1.7, Basophils (%) (Auto) 0.2, Neutrophils # (Auto) 3.7, Lymphocytes # (Auto) 1.1L, Monocytes # (Auto) 0.5, Eosinophils # (Auto) 0.1, Basophils # (Auto) 0.0, Nucleated Red Blood Cells % (auto) 0.0 10/27/20 07:00: CBC/BMP Laboratory Tests 10/27/20 06:09 10/27/20 06:10 Microbiology Microbiology 10/24/20 Respiratory Virus Panel (PCR) ([facility], [place]) - Final, Complete Discharge Medications Scheduled PRN Acetaminophen (Tylenol Extra Strength) 500 Mg Tablet, 1,000 MG PO Q8HP PRN for PAIN OR TEMP > 101 Albuterol Sulfate (Proair Hfa) 8.5 Gm Hfa.aer.ad, 2 PUFF INH Q4H PRN for SHORTNESS OF BREATH Allergies Coded Allergies: No Known Allergies (Unverified , 10/24/20) RACHAEL FOSTER MD Oct 27, 2020 12:37
[2020-10-27 14:00] VITALS: BP 134/94
== END 2020-10-27 17:11 | disposition home or self-care (01) | DRG 133 ==
LOC: M ED 12:05 → M ED INP 17:21 → ENRESERV 17:56 → M ICU 18:59 → M MSPAV 10-25 13:50
PROVIDERS: ADMIT Family Medicine; ATTEND Family Medicine
DX: J96.02 Acute respiratory failure with hypercapnia (principal); E87.2 Acidosis; E66.01 Morbid (severe) obesity due to excess calories; Z68.44 Body mass index [BMI] 60.0-69.9, adult; G47.33 Obstructive sleep apnea (adult) (pediatric); F10.10 Alcohol abuse, uncomplicated; F14.10 Cocaine abuse, uncomplicated; Z79.899 Other long term (current) drug therapy

== ENCOUNTER 2021-08-13 12:54 | Observation (INO) | payer MEDICAID, OTHER ==
[~2021-08-13] VITALS: Ht 149.9 cm; Wt 156.0 kg
[~2021-08-13 12:54] MED LIST: ACET-897 PO; PROAAER10 INH
[2021-08-13] MEDS ORDERED: ACET325T43 PO (13:00)
[2021-08-13] MEDS ORDERED: ALBU8.5H (13:01)
[2021-08-13 16:26] LABS: BASO % 0.3 % (0.0-1.0); EOS # 0.1 10^3/uL (0.0-0.5); EOS % 0.6 % (0.0-3.0); HEMATOCRIT 42.9 % (36.0-47.0); HEMOGLOBIN 13.2 g/dl (12.0-15.5); MEAN CORPUSCULAR HEMOGLOBIN 27.4 pg (27.0-33.0); MEAN CORPUSCULAR HGB CONC 30.8 g/dl (32.0-36.5); MONO # 0.6 10^3/uL (0.0-0.8); MONO % 7.2 % (2.0-8.0); NEUTROPHILS # 5.1 10^3/uL (1.5-8.5); NEUTROPHILS % 65.8 % (36.0-66.0); PLATELET COUNT, AUTOMATED 328 10^3/uL (150-450); RED BLOOD COUNT 4.82 10^6/uL (4.00-5.40); WHITE BLOOD COUNT 7.8 10^3/uL (4.0-10.0)
[2021-08-13 16:32] LABS: ALBUMIN 3.8 GM/DL (3.2-5.2); ALT/SGPT 35 U/L (12-78); BILIRUBIN,TOTAL 0.6 MG/DL (0.2-1.0); BLOOD UREA NITROGEN 15 MG/DL (7-18); CALCIUM LEVEL 9.3 MG/DL (8.5-10.1); CARBON DIOXIDE LEVEL 31 MEQ/L (21-32); CHLORIDE LEVEL 107 MEQ/L (98-107); GLOMERULAR FILTRATION RATE > 60.0 (>58); GLUCOSE, FASTING 125 MG/DL (70-100); POTASSIUM SERUM 4.2 MEQ/L (3.5-5.1); SODIUM LEVEL 142 MEQ/L (136-145); TOTAL PROTEIN 7.7 GM/DL (6.4-8.2)
[2021-08-13 16:36] LABS: FREE T4 1.06 NG/DL (0.76-1.46); INR 0.87; PROTHROMBIN TIME 12.2 SECONDS (12.7-14.5); THYROID STIMULATING HORMONE 0.958 uIU/ML (0.358-3.740)
[2021-08-13 16:37] LABS: PARTIAL THROMBOPLASTIN TIME 26.3 SECONDS (25.9-37.0)
[2021-08-13] MEDS ORDERED: PROAAER10 INH (17:59)
[2021-08-13] MEDS ORDERED: ACET1TAB55 PO (17:59)
[2021-08-13] MEDS ORDERED: HOME MED LIST COMPLETE! XX SCH (18:00)
[2021-08-13] MEDS: ACETAMINOPHEN 500 MG TAB PO PRN (21:31)
[2021-08-13 22:00] VITALS: BP 142/86
[2021-08-14] VITALS (11 sets, daily range): BP systolic 95–164; BP diastolic 61–91; O2SAT 69–100
[2021-08-14] MEDS: ACETAMINOPHEN 500 MG TAB PO PRN ×2 (03:49→12:28)
[2021-08-14] MEDS ORDERED: KETOROLAC 30 MG/ML 1ML VIAL IV ONE (04:45)
[2021-08-14] MEDS ORDERED: amLODIPine 5 MG TAB PO SCH (09:00)
[2021-08-14 10:06] LABS: APPEARANCE, CSF CLEAR (CLEAR); COLOR, CSF COLORLESS (COLORLESS); CSF TUBE# CELL CNT TUBE 1
[2021-08-14 10:07] LABS: APPEARANCE, CSF CLEAR (CLEAR); COLOR, CSF COLORLESS (COLORLESS); CSF TUBE# CELL CNT TUBE 4
[2021-08-14 10:09] LABS: CSF TUBE# GLU TUBE 2; CSF TUBE# TP TUBE 2; GLUCOSE CSF 84 MG/DL (40-75); TOTAL PROTEIN,CSF 26 MG/DL (15-45)
[2021-08-14] MEDS ORDERED: acetaZOLAMIDE 250 MG TAB PO SCH (12:00)
[2021-08-14] MEDS ORDERED: INFLUENZA QUADRIVALENT PF VACCINE 0.5ML SYRINGE IM ONE (12:00)
[2021-08-14] MEDS ORDERED: ACET50CA PO (17:28)
== END 2021-08-14 18:46 | disposition home or self-care (01) ==
LOC: M ED 12:54 → M ED INP 12:55 → M MSPAV 20:50
PROVIDERS: ADMIT Family Medicine; ATTEND Family Medicine
DX: G93.2 Benign intracranial hypertension (principal); H47.11 Papilledema associated with increased intracranial pressure; G44.229 Chronic tension-type headache, not intractable; I10 Essential (primary) hypertension; E66.01 Morbid (severe) obesity due to excess calories; Z68.44 Body mass index [BMI] 60.0-69.9, adult; J45.909 Unspecified asthma, uncomplicated; R06.83 Snoring; R06.81 Apnea, not elsewhere classified; G43.909 Migraine, unspecified, not intractable, without status migrainosus
CPT/HCPCS: 62328; 70450; 77002; 80053; 82945; 84157; 84439; 84443; 84702; 85025; 85610; 85730; 87070; 87102; 87205; 87252; 87483; 87798; 88108; 88313; 89050; 96374; 99284; J1885

== ENCOUNTER → 2022-02-20 | Outpatient (CLI) | payer OTHER ==
[~2022-02-20] MED LIST changes: +ACET1TAB55 PO; +ACET325T43 PO; +ACET50CA PO; +ALBU8.5H
[2022-02-20 16:22] LABS: BASO % 0.3 % (0.0-1.0); EOS # 0.1 10^3/uL (0.0-0.5); EOS % 1.3 % (0.0-3.0); HEMATOCRIT 42.2 % (36.0-47.0); HEMOGLOBIN 13.2 g/dl (12.0-15.5); LYMPH # 2.7 10^3/uL (1.5-5.0); LYMPH % 39.5 % (24.0-44.0); MEAN CORPUSCULAR HEMOGLOBIN 27.5 pg (27.0-33.0); MEAN CORPUSCULAR HGB CONC 31.3 g/dl (32.0-36.5); MEAN CORPUSCULAR VOLUME 87.9 fl (80.0-96.0); MONO # 0.5 10^3/uL (0.0-0.8); MONO % 7.9 % (2.0-8.0); NEUTROPHILS # 3.5 10^3/uL (1.5-8.5); NEUTROPHILS % 50.7 % (36.0-66.0); PLATELET COUNT, AUTOMATED 266 10^3/uL (150-450); WHITE BLOOD COUNT 6.9 10^3/uL (4.0-10.0)
[2022-02-20 18:52] LABS: FOLATE 9.7 NG/ML; TOTAL 25(OH) VITAMIN D 11.4 NG/ML (30.0-100.0)
== END ==
LOC: M LAB 15:30
PROVIDERS: ATTEND Psychiatry & Neurology Neurology
DX: R51.9 Headache, unspecified (principal)

== ENCOUNTER → 2022-02-20 | Outpatient (CLI) | payer OTHER ==
[2022-02-20 18:52] LABS: BLOOD UREA NITROGEN 8 MG/DL (7-18); CALCIUM LEVEL 9.3 MG/DL (8.5-10.1); CARBON DIOXIDE LEVEL 29 MEQ/L (21-32); CHLORIDE LEVEL 105 MEQ/L (98-107); CREATININE FOR GFR 0.75 MG/DL (0.55-1.30); GLOMERULAR FILTRATION RATE > 60.0 (>58); GLUCOSE, FASTING 128 MG/DL (70-100); POTASSIUM SERUM 3.9 MEQ/L (3.5-5.1); SODIUM LEVEL 141 MEQ/L (136-145)
== END ==
LOC: M LAB 15:26
PROVIDERS: ATTEND Physician Assistant
DX: I10 Essential (primary) hypertension (principal)

== ENCOUNTER → 2022-04-10 | Outpatient (CLI) | payer OTHER | LOC: M WHC 08:37 | PROVIDERS: ATTEND Physician Assistant | DX: R92.8 Other abnormal and inconclusive findings on diagnostic imaging of breast (principal) ==

== ENCOUNTER → 2022-05-07 | Outpatient (CLI) | payer OTHER ==
[2022-05-07 15:21] LABS: BASO % 0.4 % (0.0-1.0); EOS # 0.1 10^3/uL (0.0-0.5); EOS % 0.9 % (0.0-3.0); HEMATOCRIT 41.2 % (36.0-47.0); HEMOGLOBIN 12.6 g/dl (12.0-15.5); LYMPH # 3.4 10^3/uL (1.5-5.0); LYMPH % 45.2 % (24.0-44.0); MEAN CORPUSCULAR HEMOGLOBIN 27.9 pg (27.0-33.0); MEAN CORPUSCULAR HGB CONC 30.6 g/dl (32.0-36.5); MEAN CORPUSCULAR VOLUME 91.2 fl (80.0-96.0); MONO # 0.6 10^3/uL (0.0-0.8); MONO % 8.5 % (2.0-8.0); NEUTROPHILS # 3.3 10^3/uL (1.5-8.5); NEUTROPHILS % 44.7 % (36.0-66.0); PLATELET COUNT, AUTOMATED 321 10^3/uL (150-450); RED BLOOD COUNT 4.52 10^6/uL (4.00-5.40); WHITE BLOOD COUNT 7.4 10^3/uL (4.0-10.0)
[2022-05-07 15:41] LABS: APPEARANCE, URINE MANUAL CLEAR (CLEAR); BILIRUBIN, URINE MANUAL NEGATIVE (NEGATIVE); BLOOD URINE MANUAL NEGATIVE (NEGATIVE); COLOR, URINE MANUAL LT YELLOW (YELLOW); GLUCOSE, URINE (UA) MANUAL NEGATIVE (NEGATIVE); KETONE, URINE MANUAL NEGATIVE (NEGATIVE); LEUKOCYTE ESTERASE, URINE MAN NEGATIVE (NEGATIVE); NITRITE, URINE MANUAL NEGATIVE (NEGATIVE); PROTEIN, URINE MANUAL NEGATIVE (NEGATIVE); SPECIFIC GRAVITY,URINE MANUAL 1.005 (1.002-1.035); UROBILINOGEN, URINE MANUAL NORMAL (NORMAL)
[2022-05-07 17:06] LABS: ALBUMIN 3.6 GM/DL (3.2-5.2); ALT/SGPT 45 U/L (12-78); BILIRUBIN,TOTAL 0.6 MG/DL (0.2-1.0); BLOOD UREA NITROGEN 10 MG/DL (7-18); CARBON DIOXIDE LEVEL 27 MEQ/L (21-32); CHLORIDE LEVEL 107 MEQ/L (98-107); CREATININE FOR GFR 0.94 MG/DL (0.55-1.30); GLOMERULAR FILTRATION RATE > 60.0 (>58); GLUCOSE, FASTING 129 MG/DL (70-100); POTASSIUM SERUM 3.9 MEQ/L (3.5-5.1); SODIUM LEVEL 141 MEQ/L (136-145); THYROID STIMULATING HORMONE 0.832 uIU/ML (0.358-3.740); TOTAL PROTEIN 7.4 GM/DL (6.4-8.2)
[2022-05-07 20:37] LABS: HEMOGLOBIN A1c 7.1 %
== END ==
LOC: M RAD 14:11
PROVIDERS: ATTEND Physician Assistant
DX: R42 Dizziness and giddiness (principal); R73.9 Hyperglycemia, unspecified; R35.0 Frequency of micturition